=== PATIENT | male | born 1970 | race Caucasian/White ===

== ENCOUNTER 2018-08-17 15:18 | Outpatient (CLI) | payer OTHER ==
[2016-01-24 14:26] VITALS: BP 138/100
--- NOTE | 2018-08-17 16:27 | Diagnostic Imaging Report ---
PAPA LOZA [facility] [address] [facility].[address] [address] Report Submission Date: Aug 17, 2018 4:14:02 PM REGISTERED CLINICAL DIETITIAN Patient Study Name: PAPA HUTCHINSON Date: Aug 18, 2018 6:38:29 AM REGISTERED CLINICAL DIETITIAN Modality Type: DX Gender: M Description: SHOULDER 2 OR MORE VIEWS : 66 Institution: [facility] Physician: PAPA LOZA Right shoulder History: Pain Three views of the right shoulder demonstrate movement of the humeral head into internal and external rotation without evidence for acute fracture or dislocation. Mild AC joint hypertrophy and narrowing is present. Impression: No acute osseous abnormality. Mild AC joint hypertrophy and narrowing. Electronically signed on Aug 17, 2018 4:14:02 PM REGISTERED CLINICAL DIETITIAN by: Ting TRONCOSO
--- NOTE | 2018-08-17 16:28 | Diagnostic Imaging Report ---
PAPA LOZA [facility] [address] [facility].[address] [address] Report Submission Date: Aug 17, 2018 4:13:15 PM [employer] Patient Study Name: PAPA HUTCHINSON Date: Aug 18, 2018 6:38:29 AM [employer] Modality Type: DX Gender: M Description: CHEST 2 VIEW : 66 Institution: [facility] Physician: PAPA LOZA PA AND LATERAL CHEST HISTORY: Chest pain COMPARISON: None PA and Lateral Chest dated August 17, 2018 demonstrates a normal cardiomediastinal silhouette. Pulmonary vascularity is normal. Lungs are clear. IMPRESSION: NO ACTIVE DISEASE. Electronically signed on Aug 17, 2018 4:13:15 PM [employer] by: Ting TRONCOSO
== END 2018-08-17 15:20 ==
LOC: RT 15:18
PROVIDERS: ATTEND Family Medicine
DX: R07.82 Intercostal pain (principal); R07.9 Chest pain, unspecified; M25.511 Pain in right shoulder
CPT/HCPCS: 71046; 73030

== ENCOUNTER 2018-09-21 10:34 | Outpatient (CLI) | payer OTHER ==
[2016-01-24 14:26] VITALS: BP 138/100
[2018-09-21 10:48] LABS: EOSINOPHILS % 3.6 % (0.0-6.8); MEAN CORPUSCULAR HEMOGLOBIN 32.1 pg (28.0-34.0); MONOCYTES % 9.8 % (0.0-11.0)
== END 2018-09-21 10:35 ==
LOC: LAB 10:34
PROVIDERS: ATTEND Family Medicine
DX: J01.00 Acute maxillary sinusitis, unspecified (principal); J02.9 Acute pharyngitis, unspecified
CPT/HCPCS: 36415; 85025; 86308

== ENCOUNTER 2019-05-21 16:16 | Emergency (ER) | payer OTHER ==
--- NOTE | 2019-05-21 16:25 | ED Physician Documentation ---
Flank Pain - HISTORIAN Historian: patient - HPI Stated Complaint: left flank pain since noon Chief Complaint: Flank Pain Onset: hours (5) Duration: constant Timing: worse Context: other (history of kidney stones ). denies: out of country travel, bad food, recent trauma Severity: severe (04/29) Quality: pain, sharp Associated Symptoms: nausea, vomiting. denies: fever, chills Exacerbated by: nothing Relieved by: nothing Further Comments: yes (He states around noon left flank pain that wraps to the groin started as a constant low pain that has increased in intensity and now nausea and vomiting. No injury. No OTC meds for pain prior to arrival) - ROS CONST: no problems EYES/ENT: none NEURO/PSYCH: none - SOCIAL HX Smoking History: non-smoker Alcohol Use: occasionally Drug Use: none - FAMILY HX Family History: kidney stones - PAST HX Past History: none Medications: none Allergies: NKDA - VITAL SIGNS Vital Signs: Vital Signs Temp Pulse Resp BP Pulse Ox 138/100 01/24/16 14:24 - REVIEWED ASSESSMENTS Nursing Assessment Reviewed: Yes Vitals Reviewed: Yes Progress - Progress Progress: 1658 : Pain improvement DG 1800: continues to rest quietly with no complaints DG 1825: discussed case with John archer super will return call DG 1842: Dr Moore accepting at [facility] DG Abdominal Pain Physical Exam - Physical Exam General Appearance: alert, moderate distress EENT: eye inspection normal, no signs of dehydration NECK: normal inspection RESPIRATORY: no resp distress, chest non-tender, breath sounds normal CVS: reg rate & rhythm, heart sounds normal, equal pulses ABDOMEN: soft, normal bowel sounds, tenderness (LLQ ) BACK: CVA tenderness (L) SKIN: warm/dry, normal color EXTREMITIES: non-tender, no edema NEURO: oriented X3 Vital Signs: Vital Signs Temp Pulse Resp BP Pulse Ox 138/100 01/24/16 14:24 Discharge Clincal Impression: Urinary tract obstruction by kidney stone Referrals: Michael Choi MD [Primary Care Provider] - 2 Days Comments: Dr Moore accepting [facility] Condition: Fair Disposition: 02 XFER SHT-TRM HOSP Decision to Admit: NO Date of Decison to Admit: 05/21/19 Decision Time: 18:43
[2019-05-21] MEDS: 0.9 % SODIUM CHLORIDE 1,000 ML IV ONE (16:35)
[2019-05-21] MEDS: ONDANSETRON HCL/PF 4 MG/ 2ML VIAL IVP ONE (16:36)
[2019-05-21] MEDS: KETOROLAC TROMETHAMINE 30 MG/1ML VIAL IV ONE (16:37)
[2019-05-21] MEDS: ONDANSETRON HCL/PF 4 MG/ 2ML VIAL ONE (16:52)
[2019-05-21 17:19] LABS: BASOPHILS % 1.3 % (0.0-1.5); NEUTROPHILS # 14.3 # k/uL (1.4-7.7)
[2019-05-21 17:41] LABS: eGFR (Non-African) > 60
[2019-05-21] MEDS: fentaNYL CITRATE/PF 100 MCG/2 ML INJ. IVP ONE (19:17)
[2019-05-21 19:33] VITALS: BP 115/59
[2019-05-22 10:01] LABS: APPEARANCE,URINE CLEAR (CLEAR); COLOR,URINE YELLOW (YELLOW); OCCULT BLOOD,URINE 3+ (NEGATIVE); UROBILINOGEN URINE 0.2 Eu (0.2-1.0)
--- NOTE | 2019-05-24 10:15 | Diagnostic Imaging Report ---
[facility] [address] [facility] [address] Patient Name: PAPA HUTCHINSON Referring Physician: Nathalia Pulliam Date of : 1970 Gender: M Date of Service: 05/21/2019 Exam Requested: CT ABD PELVIS W/O CO EXAMINATION: CT ABD PELVIS W/O CO HISTORY: CT A/P RENAL, LEFT SIDED FLANK PAIN SINCE NOON TODAY, PT STATES HX OF KIDNEY STONES (Hx) / ITS.REASON^left flank pain hx of stones Note time : 05/21/2019 6:06:31 PM User : [place] CT A/P RENAL, LEFT SIDED FLANK PAIN SINCE NOON TODAY, PT STATES HX OF KIDNEY STONES (DICOM Hx) (DICOM Hx) TECHNIQUE: CT of the abdomen and pelvis was performed without contrast according to standard protocol. COMPARISON: None FINDINGS: The aorta is normal in caliber. The visible lung bases are clear. The heart size is normal. The liver appears normal. The gallbladder appears normal. The intrahepatic and extrahepatic bile ducts are nondilated. The spleen, pancreas, and adrenal glands appear normal. The kidneys are normal in size. There is an obstructive 6 mm calculus and the left ureteropelvic junction with mild hydronephrosis. The distal esophagus and stomach appear normal. The small bowel and colon are normal in caliber without evidence of wall thickening or obstruction. The appendix appears normal. No free air or free fluid is identified in the abdomen. There is no abdominal lymphadenopathy. The urinary bladder is distended with fluid and appears normal. No free fluid is seen in the pelvis. Bone windows demonstrate no suspicious lytic or blastic lesions. The visible osseous structures are intact. There is L5/S1 degenerative disc disease. IMPRESSION: 1. Obstructive 6 mm calculus in the left ureteropelvic junction with hydronephrosis. D
== END 2019-05-21 19:22 | disposition short-term general hospital (02) ==
LOC: ED 16:16
DX: N13.9 Obstructive and reflux uropathy, unspecified (principal); N20.0 Calculus of kidney
CPT/HCPCS: 36415; 51702; 74176; 80053; 81002; 85025; 87040; 96361; 96374; 96375; 99283; 99284; J1885; J2405; J3010; J7030; S1016

== ENCOUNTER 2019-07-05 10:43 | Outpatient (CLI) | payer OTHER ==
--- NOTE | 2019-07-05 11:09 | Diagnostic Imaging Report ---
PATIENT MR#: [id number] PATIENT PATIENT NAME: PAPA HUTCHINSON DATE OF : 1970 REFERRING PHYSICIAN: Migdalia Devine EXAM DATE: 07/05/2019 ACCESSION NUMBER: [id number] EXAM DESCRIPTION: FOOT 3 VIEWS OR MORE Exam: Left foot. History: Pain for 1 week. AP, lateral and oblique view of the left foot are submitted. No signs of acute fracture or dislocation is seen. 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 Spurs off the plantar and posterior surfaces of the calcaneus are noted. Impression: Heel spurs. Read by: Dr. Oumar Rodrigues Transcribed by: Transcribed Date: Electronically signed by: Dr. Oumar Rodrigues Date signed: 07/05/2019 11:08:45 AM
--- NOTE | 2019-07-05 11:10 | Diagnostic Imaging Report ---
PATIENT MR#: [id number] PATIENT PATIENT NAME: PAPA HUTCHINSON DATE OF : 1970 REFERRING PHYSICIAN: Migdalia Devine EXAM DATE: 07/05/2019 ACCESSION NUMBER: [id number] EXAM DESCRIPTION: ANKLE 3 VIEWS OR MORE Exam: Left ankle. History: Pain for 1 week. AP, lateral and mortise view of the left ankle are submitted. No signs of fracture or dislocation is seen. No bony erosions are seen. No soft tissue abnormality is identified. Impression: No bony abnormality. Read by: Dr. Oumar Rodrigues Transcribed by: Transcribed Date: Electronically signed by: Dr. Oumar Rodrigues Date signed: 07/05/2019 11:09:45 AM
== END 2019-07-05 10:48 ==
LOC: LAB 10:43
PROVIDERS: ATTEND Nurse Practitioner Family
DX: M25.572 Pain in left ankle and joints of left foot (principal)
CPT/HCPCS: 36415; 73610; 73630; 84550